=== PATIENT | female | born 1940 | race Caucasian/White ===

== ENCOUNTER 2018-12-13 11:19 | Emergency (ER) | payer MEDICARE, MEDICAID ==
[2018-12-13] MEDS: KETOROLAC 30 MG INJ IM (12:26)
== END 2018-12-13 15:04 | disposition home or self-care (01) ==
LOC: FTE 15:04
DX: M17.12 Unilateral primary osteoarthritis, left knee (principal); Z98.61 Coronary angioplasty status
CPT/HCPCS: 96372; 99284-25

== ENCOUNTER 2018-12-25 12:00 | Emergency (ER) | payer MEDICARE, MEDICAID | END 2018-12-25 14:30 | disposition home or self-care (01) | LOC: FTE 12:00 | DX: H02.843 Edema of right eye, unspecified eyelid (principal); I10 Essential (primary) hypertension | CPT/HCPCS: 99282 ==

== ENCOUNTER 2019-01-25 21:16 | Emergency (ER) | payer MEDICARE, OTHER, MEDICAID ==
[2019-01-25] MEDS: ACETAMINOPHEN 500 MG TAB PO (21:48)
[2019-01-25] MEDS: CEFEPIME 2GM/50 ML (PMX) 50 ML IVPB (21:50)
[2019-01-25] MEDS: SODIUM CHLORIDE 0.9% 1L BAG IV* (21:50)
[2019-01-25 21:52] LABS: ADD MAN DIFF? NO
[2019-01-25 21:54] LABS: BASOPHILS % 0.3 % (0.0-2.0); EOSINOPHILS % 0.1 % (0.0-7.0); HEMATOCRIT 41.7 % (37.0-47.0); HEMOGLOBIN 13.8 g/dl (12.0-16.0); LYMPHOCYTES # 1.8 10^3/ul (0.8-2.9); LYMPHOCYTES % 12.1 % (15.0-51.0); MEAN CORPUSCULAR HEMOGLOBIN 28.9 pg (29.0-33.0); MEAN CORPUSCULAR HGB CONC 33.1 g/dl (32.0-37.0); MEAN CORPUSCULAR VOLUME 87.4 fl (82.0-101.0); MEAN PLATELET VOLUME 10.8 fl (7.4-10.4); MONOCYTE # 0.7 10^3/ul (0.3-0.9); MONOCYTES % 4.9 % (0.0-11.0); NEUTROPHIL # 12.2 10^3/ul (1.6-7.5); NEUTROPHILS % 82.1 % (39.0-77.0); PLATELET COUNT 237 10^3/UL (140-415); RED BLOOD COUNT 4.77 10^6/ul (4.20-5.40); RED CELL DISTRIBUTION WIDTH 13.9 % (11.5-14.5)
[2019-01-25 21:54] LABS: WHITE BLOOD COUNT 14.9 10^3/ul (4.8-10.8)
[2019-01-25 22:00] LABS: POSITIVE DIFF @See below
[2019-01-25 22:13] LABS: INR 1.03; PROTIME 13.6 Sec (11.9-14.9); PT RATIO 1.1
[2019-01-25 22:14] LABS: PARTIAL THROMBOPLASTIN TIME 27.4 Sec (23.0-35.0)
[2019-01-25] MEDS: VANCOMYCIN 1 GM (PMX) 250 ML IVPB (22:17)
[2019-01-25 22:22] LABS: ALANINE AMINOTRANSFERASE 10 IU/L (13-69); ALBUMIN 4.4 g/dl (3.3-4.9); ALBUMIN/GLOBULIN RATIO 1.12; ALKALINE PHOSPHATASE 128 IU/L (42-121); ANION GAP 12 (5-13); ASPARTATE AMINO TRANSFERASE 18 IU/L (15-46); BILIRUBIN,INDIRECT 0.6 mg/dl (0-1.1); BILIRUBIN,TOTAL 0.6 mg/dl (0.2-1.3); BLOOD UREA NITROGEN 19 mg/dl (7-20); CALCIUM 9.3 mg/dl (8.4-10.2); CARBON DIOXIDE 28 mmol/L (21-31); CHLORIDE 99 mmol/L (97-110); CREATININE 1.04 mg/dl (0.44-1.00); GLUCOSE 181 mg/dl (70-220); POTASSIUM 3.9 mmol/L (3.5-5.1); SODIUM 139 mmol/L (135-144); TOTAL PROTEIN 8.3 g/dl (6.1-8.1)
[2019-01-25 22:32] LABS: TROPONIN-I 0.037 ng/ml (0.000-0.120)
[2019-01-25 23:52] LABS: URINE BLOOD (Dip) POC Trace-intact (NEGATIVE); URINE GLUCOSE (Dip) POC Negative (NEGATIVE); URINE KETONES (Dip) POC Negative (NEGATIVE); URINE LEUKOCYTE EST (Dip) POC Trace (NEGATIVE); URINE NITRITE (Dip) POC Positive (NEGATIVE); URINE TOTAL PROTEIN POC Trace (NEGATIVE)
[2019-01-25 23:52] LABS: URINE PH (Dip) POC 6.5 (5.0-8.5)
[2019-01-26] MEDS ORDERED: ONDANSETRON 4 MG INJ IV (00:30)
[2019-01-26] MEDS ORDERED: ACETAMINOPHEN 325 MG TAB PO (00:30)
[2019-01-26 02:07] LABS: ADD UMIC YES; UR ASCORBIC ACID NEGATIVE (NEGATIVE); UR BACTERIA FEW /HPF (NONE SEEN); UR BILIRUBIN (Dip) NEGATIVE (NEGATIVE); UR BLOOD (Dip) 2+ mg/dL (NEGATIVE); UR CLARITY CLEAR (CLEAR); UR COLOR YELLOW (YELLOW); UR GLUCOSE (Dip) NEGATIVE (NEGATIVE); UR KETONES (Dip) NEGATIVE (NEGATIVE); UR LEUKOCYTE ESTERASE (Dip) NEGATIVE Leu/ul (NEGATIVE); UR NITRITE (Dip) POSITIVE (NEGATIVE); UR RBC 5 /HPF (0-5); UR SPECIFIC GRAVITY (Dip) 1.015 (1.003-1.030); UR TOTAL PROTEIN (Dip) NEGATIVE (NEGATIVE); UR UROBILINOGEN (Dip) NEGATIVE (NEGATIVE); UR WBC 8 /HPF (0-5)
== END 2019-01-26 07:25 | disposition short-term general hospital (02) ==
LOC: E/R 21:16
DX: N10 Acute pyelonephritis (principal); I10 Essential (primary) hypertension; A41.9 Sepsis, unspecified organism
CPT/HCPCS: 36415; 71045; 74176; 80053; 81001; 81003; 83605; 84484; 85025; 85610; 85730; 87040-91; 87086; 93005; 96365; 96366; 96368; 99285-25